=== PATIENT | male | born 1960 | race Caucasian/White ===

== ENCOUNTER 2021-05-24 17:02 | Emergency (ER) | payer OTHER ==
[2021-05-24] MEDS ORDERED: Sodium Chloride 0.9% 1,000 ML ONE (17:07)
[2021-05-24] MEDS: levETIRAcetam in NaCl (iso-os) 500 MG in Premix Bag 1 BAG IV ONE ×4 (17:57→18:56)
[2021-05-24] MEDS: Sodium Chloride 0.9% 1,000 ML IV ONE (17:58)
[2021-05-24 18:15] LABS: CHLORIDE,CL 104 mEq/L (98-106); SODIUM,NA 142 mEq/L (136-145)
[2021-05-24] MEDS ORDERED: Aspirin 81 MG Tab.Chew PO ONE (19:15)
== END 2021-05-24 19:55 ==
LOC: CC.ED 17:02
DX: G40.109 Localization-related (focal) (partial) symptomatic epilepsy and epileptic syndromes with simple partial seizures, not intractable, without status epilepticus (principal); I10 Essential (primary) hypertension; Z88.8 Allergy status to other drugs, medicaments and biological substances; Z86.73 Personal history of transient ischemic attack (TIA), and cerebral infarction without residual deficits; Z72.0 Tobacco use; Z20.822 Contact with and (suspected) exposure to COVID-19
CPT/HCPCS: 36415; 70450; 80053; 82550; 84484; 85025; 85610; 85730; 93005; 96365; 96366; 96375; 99285-25; J1953; J3360; J7030; U0002